=== PATIENT | female | born 1990 ===

== ENCOUNTER 2021-12-07 10:14 | Outpatient (CLI) | payer SELFPAY | END 2021-12-07 10:15 | disposition home or self-care (01) | LOC: LABHHL 10:14 | PROVIDERS: ATTEND Internal Medicine | DX: R73.9 Hyperglycemia, unspecified (principal) | CPT/HCPCS: 36415; 83036 ==

== ENCOUNTER 2022-01-04 10:19 | Outpatient (CLI) | payer SELFPAY ==
[2022-01-04 12:41] LABS: Hyaline Casts,Urine 1 /LPF; Mucus,Urine FEW /HPF
[2022-01-04 12:43] LABS: Color,Urine Straw (Yellow)
== END 2022-01-04 10:20 | disposition home or self-care (01) ==
LOC: LABHHL 10:19
PROVIDERS: ATTEND Internal Medicine
DX: N39.0 Urinary tract infection, site not specified (principal)
CPT/HCPCS: 81001